=== PATIENT | male | born 1985 | race African-American/Black ===

== ENCOUNTER 2019-01-26 14:17 | Emergency (ER) | payer BC, OTHER ==
[2019-01-26 15:10] VITALS: BP 135/85
--- NOTE | 2019-01-26 16:27 | UC ---
Skin Complaint HPI - HPI Summary HPI Summary: 33-year-old male presents with complaints of a tender swollen area to his left inner thigh. States symptoms started 3 days ago and have progressively worsened. States he soaked in a hot tub earlier today with some improvement in his symptoms. No drainage has been noted. No known injury or insect bite. States has had some chills but denies any fever. - History of Current Complaint Chief Complaint: UCSkin Time Seen by Provider: 01/26/19 16:05 Stated Complaint: SORE ON LEG Hx Obtained From: Patient Pain Intensity: 8 - Allergy/Home Medications Allergies/Adverse Reactions: Allergies Allergy/AdvReac Type Severity Reaction Status Date / Time clindamycin Allergy Swelling Verified 01/26/19 15:12 Of Face,Lips,& Throat PMH/Surg Hx/FS Hx/Imm Hx Previously Healthy: Yes - Denies significant PMH - Surgical History Surgical History: Yes Surgery Procedure, Year, and Place: ACL surgery to both knees - Family History Known Family History: Positive: Non-Contributory - Social History Occupation: Employed Full-time Lives: With Family Alcohol Use: None Substance Use Type: None Smoking Status (MU): Never Smoked Tobacco - Immunization History Most Recent Tetanus Shot: up to date Review of Systems All Other Systems Reviewed And Are Negative: Yes Constitutional: Positive: Chills. Negative: Fever Skin: Positive: Other - See HPI Respiratory: Positive: Negative Cardiovascular: Positive: Negative Gastrointestinal: Positive: Negative Genitourinary: Positive: Negative Musculoskeletal: Positive: Negative Neurological: Positive: Negative Is Patient Immunocompromised?: No Physical Exam - Summary Physical Exam Summary: GENERAL APPEARANCE: Well developed, well nourished, alert and cooperative, and appears to be in no acute distress. CARDIAC: Normal S1 and S2. No S3, S4 or murmurs. Rhythm is regular. There is no peripheral edema, cyanosis or pallor. Extremities are warm and well perfused. Capillary refill is less than 2 seconds. Peripheral pulses intact. LUNGS: Clear to auscultation without rales, rhonchi, wheezing or diminished breath sounds. ABDOMEN: Positive bowel sounds. Soft, nondistended, nontender. No guarding or rebound. No masses or hepatosplenomegally. MUSKULOSKELETAL: ROM intact to all extremities. No joint erythema or tenderness. Normal muscular development. Normal gait. SKIN: Skin normal color, texture and turgor. 2 cm circular area of induration around a hair follicle to the left inner thigh without fluctuance or drainage. Triage Information Reviewed: Yes Vital Signs: Initial Vital Signs Temp 99.5 F 01/26/19 15:05 Pulse 97 01/26/19 15:05 Resp 16 01/26/19 15:05 BP 135/85 01/26/19 15:05 Pulse Ox 100 01/26/19 15:05 Vital Signs Reviewed: Yes Course/Dx - Course Course Of Treatment: 33-year-old male presents with complaints of a tender swollen area to his left inner thigh. States symptoms started 3 days ago and have progressively worsened. States he soaked in a hot tub earlier today with some improvement in his symptoms. No drainage has been noted. No known injury or insect bite. States has had some chills but denies any fever. Afebrile. Vital signs stable. Patient had 2 cm circular area of induration around a hair follicle to the left inner thigh without fluctuance or drainage. We will treat for a folliculitis with Bactrim DS 1 tab twice a day for 7 days. Also recommending that he do some hot packing to the area. He is to follow-up with his primary care provider in 3-5 days if symptoms are not improving. Anticipatory guidance and warning symptoms were reviewed with the patient. Verbalizes understanding and agrees with plan of care. - Differential Diagnoses - Skin Complaint Differential Diagnoses: Abscess, Cellulitis - Diagnoses Provider Diagnosis: Folliculitis Discharge - Sign-Out/Discharge Documenting (check all that apply): Patient Departure All imaging exams completed and their final reports reviewed: No Studies - Discharge Plan Condition: Stable Disposition: HOME Prescriptions: Sulfamethox/Trimethoprim DS* [Bactrim DS 800/160 TAB*] 1 tab PO BID #14 tab Patient Education Materials: Folliculitis (ED) Forms: *Work Release Referrals: Tello Coleman MD [Primary Care Provider] - 3 Days Additional Instructions: You appear to have an infected hair follicle. Start Bactrim DS 1 tablet twice a day for 7 days. Apply a hot moist compress to the affected area for 15 minutes several times a day. Take acetaminophen (Tylenol) or ibuprofen (Advil, Motrin) according to directions as needed for pain. Follow up with your primary care provider in 3-5 days if no improvement in your symptoms. Seek immediate medical attention if you develop a fever greater than 100.5 F, have severe pain that is not managed with acetaminophen or ibuprofen, you have increased redness or swelling, or any worsening of symptoms. - Billing Disposition and Condition Condition: STABLE Disposition: Home
== END 2019-01-26 16:38 | disposition home or self-care (01) ==
LOC: UCEAST 14:17
DX: L73.9 Follicular disorder, unspecified (principal)
CPT/HCPCS: 99202; G0463